=== PATIENT | female | born 1980 | race Caucasian/White ===

== ENCOUNTER 2018-12-18 05:16 | Inpatient (IN) ==
[2018-12-18] MEDS ORDERED: CefOXitin Inj 2 GM in Sodium Chloride 0.9% 100 ML IV PRN (05:25)
[2018-12-18] MEDS ORDERED: LIDOCAINE W/ SODIUM BICARB 0.5 ML SYR SUBD PRN (05:25)
[2018-12-18] MEDS ORDERED: ONDANSETRON 4 MG/2 ML VIAL IVP PRN (05:25)
[2018-12-18] MEDS ORDERED: fentaNYL Inj 100 MCG/2 ML VIAL IV PRN (05:25)
[2018-12-18] MEDS ORDERED: NALOXONE 0.4 MG/1 ML VIAL IVP PRN ×2 (05:25→07:22)
[2018-12-18] MEDS ORDERED: CITRIC ACID/SODIUM CITRATE 30 ML CUP PO PRN (05:25)
[2018-12-18] MEDS ORDERED: Metoclopramide Inj 10 MG/2 ML VIAL IV PRN (05:25)
[2018-12-18] MEDS ORDERED: FAMOTIDINE 20 MG/2 ML VIAL IVP PRN ×2 (05:25)
[2018-12-18] MEDS ORDERED: diphenhydrAMINE 50 MG/1 ML VIAL IVP PRN ×2 (05:25→07:22)
[2018-12-18] MEDS ORDERED: METHYLERGONOVINE MALEATE 0.2 MG/1 ML VIAL IM PRN (05:25)
[2018-12-18] MEDS ORDERED: MISOPROSTOL 200 MCG TABLET RECTAL PRN (05:25)
[2018-12-18] MEDS ORDERED: Phenylephrine Inj 50 MCG in Sodium Chloride 0.9% vial 0.5 ML IVP PRN ×2 (05:25→07:22)
[2018-12-18] MEDS ORDERED: Lidocaine 1% 10 MG/ML - 20 ML VIAL SUBCUT PRN (05:25)
[2018-12-18] MEDS ORDERED: Naloxone Inj 0.01 MG in Sodium Chloride 0.9% vial 1 ML IVP PRN ×2 (05:25→07:22)
[2018-12-18] MEDS ORDERED: BUTORPHANOL TARTRATE 2 MG/1 ML VIAL IVP PRN ×2 (05:25→07:22)
[2018-12-18] MEDS ORDERED: TERBUTALINE SULFATE 1 MG/1 ML SDV SUBCUT PRN (05:25)
[2018-12-18] MEDS ORDERED: CALCIUM CARBONATE 500 MG (TUMS) CHEWABLE TABLET PO PRN (05:25)
[2018-12-18] MEDS ORDERED: OXYTOCIN 10 UNIT/1 ML IM PRN (05:25)
[2018-12-18] MEDS ORDERED: Carboprost Inj 250 MCG/ML AMP IM PRN (05:25)
[2018-12-18] MEDS ORDERED: LIDOCAINE HCL 2 % 10 ML JELLY URO-JECT TOPICAL PRN (05:25)
[2018-12-18] MEDS ORDERED: Oxytocin 20 Units + LR 20 UNIT/1,000 ML BAG IV SCH ×2 (05:30)
[2018-12-18 05:59] LABS: Hematocrit [HCT] 41.3 % (37.0-47.0); Hemoglobin [HGB] 14.3 g/dL (12.0-16.0); MEAN CORPUSCULAR HEMOGLOBIN 32.1 PG (27-31); MEAN CORPUSCULAR HGB CONC 34.6 g/dL (33-37); MEAN CORPUSCULAR VOLUME 92.8 FL (81-99); MEAN PLATELET VOLUME 9.6 FL (7.4-12.2); RED BLOOD COUNT 4.45 10^6/uL (4.20-5.40)
[2018-12-18] MEDS: Lactated Ringers-OB Dept 1,000 ML PRIMARY IV SCH ×3 (06:01→16:00)
[2018-12-18] MEDS ORDERED: Fent/Bupiv 2mcg/0.0625% Epid 250 ML ONE (07:18)
[2018-12-18] MEDS ORDERED: Nalbuphine Inj 20 MG/ML Ampule IVP PRN (07:22)
[2018-12-18] MEDS ORDERED: ePHEDrine Inj 50 MG/ML AMP IVP PRN (07:22)
[2018-12-18] MEDS ORDERED: fentaNYL 2 MCG/BUPIVACAINE 0.0625%/NS 0.9% 250 ML BAG EPIDURAL ONE (07:23)
--- NOTE | 2018-12-18 07:25 | CRNA.PROCE ---
Central Neuraxis Block Placemt - - Type of Block: Epidural Reason for Block: Analgesia Moniters Used During Block: SPO2, NIBP Skin Prep Used: ChloroPrep (Twice each kit- Used two kits d/t venous catheter needed a second test dose.) Draped: Yes Skin Infiltration - Enter Amount Used in Comment Field: 1% Xylocaine (mL): Yes Spinal Needle Used: 18 Hustead 80 mm (MU with Saline..There was no Loss of resistance on any pass into epidural space. Ligaments unfelt, not gritty, no sudden loss of resistance going into epidural space.) Local Anesthetic - Enter Amount Used in Comment Field: 1.5 % Xylocaine with Epinephrine 1:200,000 (mL): Yes (4 ml 1st test dose. 3.5 ml 2nd test dose.) Number of Centimeters Catheter Threaded: 4 Bioclusive Dressing Applied: Yes - - Additional Details: Laga ments felt vague at least, almost non existant. 1st pass venous, venous catheter. Removed and redirected needle towards Right. . Catheter threaded with transient parasthesia. Test dose positive increase in heart rate and "head felt funny". Moved up 1 interspace. Loss of resistance with saline. Epidural space located times 1. Once again no resistance felt on locating /entering epidural space. Catheter threaded. Able to aspirate a small amount of clear fl uid from catheter. Not free flowing. Test dose negative for vascular and negative for SAB. After 15 min pt Hypotensive. Turns out preloaded fluid was only 500 ml vs 1000ml I prefer. Responded to fluid and IV ephedrine. Reduced setting on pump to 7 ml per hour. After 3 hours no SAB No moter blovk. Turned pump up to 13 ml /hour d/t increased discomfort. Stayed 5 cm for several hours. Finally complete and ready to push @2230. Baby delivered at 2254. Placenta shortly after. All appears well at this point.
--- NOTE | 2018-12-18 07:25 | CRNA.PROGR ---
Anesthesia Time - Procedure/Recovery Time Start Date: 12/18/18 End Date: 12/18/18 Anesthesia : Time In: 07:23 Anesthesia : Time Out: 23:15 Anesthesia : Total Time: 952 - Total Anesthesia Time Total Anesthesia Time (minutes): 952 - Other Physical Status: P2 Obstetrics: Planned vaginal delivery w/ neuraxial labor anesthesia/analog
[2018-12-18] MEDS ORDERED: LIDOCAINE HCL 1%/EPI 1:100,000 - 20 ML VIAL ONE (07:48)
[2018-12-18] MEDS: ePHEDrine Inj 50 MG/ML AMP IVP PRN ×2 (07:57→08:00)
[2018-12-18] MEDS ORDERED: GLYCOPYRROLATE 0.2 MG/1 ML VIAL ONE (08:05)
[2018-12-18] MEDS ORDERED: Sodium Chloride 0.9% vial 10 ML ONE (09:37)
[2018-12-18] MEDS: Nalbuphine Inj 20 MG/ML Ampule IVP PRN ×2 (13:51→17:22)
--- NOTE | 2018-12-18 16:53 | OB.PROGRES ---
Date of Service: 12/18/18 Time of Service: 13:45 Interval History: Pt is a 38 yo at 39 weeks gestation by first trimester u/s who presented today for induction of labor at term secondary to being advanced maternal age. She was 3/70/-3 this morning per the RN. Pitocin augmentation was started. Her cervix was unchanged. Amniotomy was completed at approximately 1345 with the return of clear fluid. She is comfortable with her epidural. An IUPC was placed shortly after to more closely document contraction intensity. Objective - Cervical Exam Cervical Exam: 4-70/-1 Cushing: every 3 minutes, palpating hard. Heart Rate: 130, reactive, category 1 strip, no decels noted. Heart Rate Interpretation Category: Category I - Labs CBC and BMP: 12/18/18 05:50 - Vital Signs Last Taken Vital Signs: Vital Signs - Last Taken Temperature 97.6 F 12/18/18 14:00 Pulse Rate 89 12/18/18 16:07 Respiratory Rate 16 12/18/18 16:07 Blood Pressure 150/85 12/18/18 16:07 Pulse Ox 97 12/18/18 16:07 Assessment and Plan - Patient Problems (1) Advanced maternal age in multigravida Current Visit: Yes Status: Acute Code(s): O09.529 - Supervision of elderly multigravida, unspecified trimester - Assessment / Plan Additional Assessment/Plan Details: -continue epidural for pain control. -continue pitocin augmentation, currently at 14 mU -IUPC tracing contraction intensity well. -continues to leak clear fluid. -continue to follow closely--expectant management.
[2018-12-18] MEDS ORDERED: ACETAMINOPHEN 325 MG TABLET PO PRN (18:20)
--- NOTE | 2018-12-19 00:07 | OB.DEL.SUM ---
Delivery Note Delivery Summary: After stalling out for 6 hours at 5 cm, the pt progressed into active labor. She was complete and +2 station around 2245. She began pushing a short time later and delivered a viable male over an intact perineum at 2254. There was a nuchal cord x 1. Baby's nose and mouth were suctioned with the bulb suction and he was placed on mom's chest after being dried and stimulated. Cord clamping was delayed x 60 seconds. The cord was then doubly clamped by myself and cut by the father of the baby. Cord blood and cord gases were obtained for analysis. The placenta delivered spontaneously and intact at 2306. There was a 3 vessel cord. 20 mU of pitocin were infused with good hemostasis. The vagina and perineum were examined and a first degree laceration superior to the urethra was repaired in the normal fashion with 3-0 vicryl rapide suture after a red rubber catheter was placed in the bladder to reynaldo anatomy. There were bilateral vaginal wall skid mccord which were hemostatic and thus not repaired. EBL 350cc. Apgars were 8 at 1 minute and 9 at 5 minutes. Baby weighed 7#3oz and was 20.25 inches long. Both mom and baby are in stable condition at the current time. - Patient Problems (1) Advanced maternal age in multigravida Current Visit: Yes Status: Acute Code(s): O09.529 - Supervision of elderly multigravida, unspecified trimester
[2018-12-19] MEDS ORDERED: diphenhydrAMINE 25 MG CAPSULE PO PRN (00:12)
[2018-12-19] MEDS ORDERED: Oxytocin 20 Units + LR 20 UNIT/1,000 ML BAG IV SCH (00:12)
[2018-12-19] MEDS ORDERED: diphenhydrAMINE 50 MG/1 ML VIAL IVP PRN (00:12)
[2018-12-19] MEDS ORDERED: LANOLIN HPA 40 GM TUBE TOPICAL PRN (00:12)
[2018-12-19] MEDS ORDERED: Lidocaine 1% 10 MG/ML - 20 ML VIAL INTRADERM PRN (00:12)
[2018-12-19] MEDS ORDERED: ONDANSETRON 4 MG/2 ML VIAL IVP PRN (00:12)
[2018-12-19] MEDS ORDERED: Ondansetron ODT Tab 4 MG TAB PO PRN (00:12)
[2018-12-19] MEDS ORDERED: ACETAMINOPHEN 325 MG TABLET PO PRN (00:12)
[2018-12-19] MEDS ORDERED: DIPH,PERTUSS,TET(ADACEL) VAC/PF 0.5 ML (Tdap) IM ONE (00:12)
[2018-12-19] MEDS ORDERED: LIDOCAINE HCL 2 % 10 ML JELLY URO-JECT TOPICAL PRN (00:12)
[2018-12-19] MEDS ORDERED: CALCIUM CARBONATE 500 MG (TUMS) CHEWABLE TABLET PO PRN (00:12)
[2018-12-19] MEDS ORDERED: Nalbuphine Inj 20 MG/ML Ampule IVP PRN (00:46)
[2018-12-19] MEDS: IBUPROFEN 800 MG TABLET PO PRN ×3 (01:09→17:20)
[2018-12-19] MEDS: BENZOCAINE/MENTHOL SPRAY 56 GM BOTTLE TOPICAL PRN (01:09)
[2018-12-19] MEDS: GLYCERIN/WITCH HAZEL 1 BOX TOPICAL PRN (01:10)
[2018-12-19 04:24] LABS: Hematocrit [HCT] 34.5 % (37.0-47.0); Hemoglobin [HGB] 11.8 g/dL (12.0-16.0); MEAN CORPUSCULAR HEMOGLOBIN 33.1 PG (27-31); MEAN CORPUSCULAR HGB CONC 34.2 g/dL (33-37); MEAN CORPUSCULAR VOLUME 96.9 FL (81-99); MEAN PLATELET VOLUME 9.7 FL (7.4-12.2); RED BLOOD COUNT 3.56 10^6/uL (4.20-5.40)
[2018-12-19] MEDS: oxyCODONE-ACETAMINOPHEN 5-325 TAB PO PRN ×3 (07:54→20:06)
[2018-12-19] MEDS: DOCUSATE 100 MG CAPSULE PO SCH ×2 (09:17→20:06)
[2018-12-19] MEDS: Prenatal Multivitamin Tab 1 TAB TAB PO SCH (09:17)
--- NOTE | 2018-12-19 11:18 | CRNA.PROGR ---
Anesthesia Note - Progress Notes Anesthesia Progress Note: patient walking today post epidural. No residual block, no apparent anesthesia related complications. followup PRN
--- NOTE | 2018-12-19 13:11 | OB.PROGRES ---
Subjective Post Day: 1 Pain Management: PO Patiño Catheter: No Flatus: Yes Lochia Color: Rubra/Red Moderate 25-50 ml Diet: Regular Pinch Feeding Method: Exculsively Ambulating: Yes Concerns / Additional Information: Having some discomfort from her supra-urethral laceration, better with percocet this morning. Baby is breast feeding very well. No complaints. Objective - General General Appearance: POSITIVE: No Acute Distress, Cooperative - Cardiovacular Cardiovascular Exam: POSITIVE: RRR, No Murmur Edema: +2 Pedal Edema Extremities: Negative Nishi's - Bilaterally - Respiratory Respiratory Exam: POSITIVE: Clear to Auscultation - Bilaterally, Breathing Non Labored Assesstment / Plan (1) Advanced maternal age in multigravida Current Visit: Yes Status: Acute Qualifiers: Trimester: third trimester Qualified Code(s): O09.523 - Supervision of elderly multigravida, third trimester (2) Normal spontaneous vaginal delivery Current Visit: Yes Status: Acute Assessment / Plan: -routine cares. -rubella immune. -rh positive. -sitz baths for perineal/urethral pain. -breast feeding going well. -probable d/c home tomorrow.
[2018-12-20] MEDS: IBUPROFEN 800 MG TABLET PO PRN ×2 (02:39→11:59)
[2018-12-20] MEDS: oxyCODONE-ACETAMINOPHEN 5-325 TAB PO PRN ×4 (02:40→17:45)
[2018-12-20] MEDS: DOCUSATE 100 MG CAPSULE PO SCH (08:50)
[2018-12-20] MEDS: Prenatal Multivitamin Tab 1 TAB TAB PO SCH (08:51)
[2018-12-20] MEDS: BENZOCAINE/MENTHOL SPRAY 56 GM BOTTLE TOPICAL PRN (14:40)
[2018-12-20] MEDS: GLYCERIN/WITCH HAZEL 1 BOX TOPICAL PRN (14:40)
[2018-12-20 15:58] VITALS: BP 119/72; RESP 20; TEMP 98.5; O2SAT 99
[2018-12-20] MEDS ORDERED: oxyCODONE-ACETAMINOPHEN 5-325 TAB PO SCH (16:45)
--- NOTE | 2018-12-21 11:33 | PTI REPORT ---
Thank you for the referral of Nalini Trotter. She was seen on 12/20/18 for an inpatient evaluation status post hip and low back pain. SUBJECTIVE: The patient is a 38-year-old female. The patient reports that she has been having a lot of hip and back pain since she had her baby and is having a difficult time with ambulation. She is taking Prednisone for pain and she states that helps a little, but not a lot. The patient reports she has had a history of back pain in her past. PAST MEDICAL HISTORY: Past medical history can be found in the patient's medical record. 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 The patient demonstrates decreased hamstring length bilaterally. Pain: The patient finds relief with side lying with a pillow under her left side to open up that foraminal space in her lumbar spine. Ambulation: The patient demonstrates an antalgic gait pattern off the right lower extremity. ASSESSMENT: The patient is a 38-year-old female that presents with acute disc pain and SI joint instability secondary to childbirth. The patient would benefit from skilled therapy in order to decrease pain and improve overall functional mobility. The patient might benefit from a Medrol dose pack from a prescription standpoint due to the nature of her disc for pain. Problem List: Increased pain Short-Term Goals: To be met by discharge from inpatient: Patient will report a 50% decrease in symptoms post treatment. Long-Term Goals: To be met following discharge from inpatient: Patient will be able to return home and take care of her child with a pain level less than or equal to 1/10. TREATMENT PLAN: Patient will be seen one time per day during the week and one time per day over the weekend as an inpatient to address the above goals and objectives. INITIAL TREATMENT: Treatment today consisted of the initial evaluation followed by passive range of motion of bilateral lower extremities, Kinesio tape for lumbar paraspinal inhibition and space correction, glut med facilitation, and SI joint stability. The patient was issued a Mom-EZ brace for back support and side lying axial separation with right side up. The patient received SI joint muscle energy techniques in abduction/adduction and flexion/extension. The patient reports a decrease in pain post therapy. The patient was left in her room and nursing was notified. MARCY
[2018-12-27] MEDS ORDERED: GLYCOPYRROLATE 0.2 MG/1 ML VIAL IVP ONE (06:35)
--- NOTE | 2018-12-28 13:54 | CRNA.PROGR ---
Anesthesia Note - Progress Notes Anesthesia Progress Note: Saw her in Labor and Delivery as a follow up to reports her head hasn't felt same as prior to delivery. She also reports that intermittantly she feels 'Stingers' in her back where epidural catheter insertion caused parasthesia's. She states they are transient. During this conversation she was standing apparently very comfortably. Discomfort in her neck and shoulders not behind her eyes and head centered. I don't believe this is post dural puncture.
--- NOTE | 2019-01-04 12:25 | DCSUMMARY ---
Hospitalization Summary Admit Date: 12/18/18 Discharge Date: 12/20/18 Primary Diagnosis:: IUP at term Delivery Type: Vaginal Hospital Course: Nalini was admitted for induction of labor at term; she went on to have an uncomplicated vaginal delivery. Her course was likewise unremarkable. On the day of discharge, her pain was well controlled, she was tolerating a regular diet and was independent in her activities of daily living. She requested discharge. Baby was kept an additional night for some mild hypoglycemia. / Postop Complications: none Complications: mild hypoglycemia relating to inadequate intake, this was corrected by the time of discharge. Exam - Vitals Vital Signs: Vital Signs Temperature 98.5 F Temperature Source Temporal Artery Scan Pulse Rate [Pulse Oximeter] 85 Pulse Rate 76 Respiratory Rate 20 Blood Pressure [Left Arm] 117/60 Blood Pressure [Right Arm] 119/72 Blood Pressure 133/69 Pulse Ox 99 Oxygen Flow Rate 0 Oxygen Delivery Method Room Air Height 5 ft 2 in Weight 250 lb - General General Appearance: No Acute Distress, Cooperative - Head Head Exam: Normal Inspection, Normocephalic - Neck Neck Exam: Normal Inspection - Respiratory Respiratory Exam: POSITIVE: Clear to Auscultation - Bilaterally, Breathing Non Labored - Cardiovascular Cardiovascular Exam: POSITIVE: RRR, No Murmur - Extremities Extremities Exam: POSITIVE: Negative Nishi's sign, +1 Edema - Neurological Neurological Exam: POSITIVE: Alert, Oriented x 3 - Psychiatric Psychiatric Exam: POSITIVE: Normal Affect, Normal Mood - Integumentary Integumentary Exam: POSITIVE: Normal Color, Warm Patient Problems - Patient Problem List (1) Advanced maternal age in multigravida Status: Acute Code(s): O09.529 - Supervision of elderly multigravida, unspecified trimester Qualifiers: Trimester: third trimester Qualified Code(s): O09.523 - Supervision of elderly multigravida, third trimester Category: Medical (2) Normal spontaneous vaginal delivery Status: Acute Code(s): O80 - Encounter for full-term uncomplicated delivery Category: Medical
== END 2018-12-20 18:00 | disposition home or self-care (01) | DRG 807 ==
LOC: OBIP 05:16
PROVIDERS: ADMIT Family Medicine; ATTEND Family Medicine